=== PATIENT | male | born 1970 | race Caucasian/White ===

== ENCOUNTER 2018-07-11 15:31 | Emergency (ER) | payer MEDICAID ==
[~2018-07-11] VITALS: Wt 75.0 kg
[2018-07-11] MEDS ORDERED: KETOROLAC 60 MG INJ IM STA (16:16)
[2018-07-11] MEDS ORDERED: HYDR-4011 PO (19:06)
[2018-07-11] MEDS ORDERED: IBUP-1542 PO (19:06)
[2018-07-11 19:19] VITALS: BP 110/70; PULSE 88; RESP 16
--- NOTE | 2018-07-11 22:15 | ERD ---
ER Documentation Chief Complaint Chief Complaint LEFT LOWER LEG PAIN S/P FALL, NO KO HPI 48-year-old male patient with no significant past medical history presents to ED complaining of left lower leg pain status post fall from a ladder about 12 feet tall. 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 States that he has some numbness and tingling on his buttocks. Reports that sides of his neck also hurt. Denies any head or neck injuries. Denies any chest, abdominal, back injuries. Patient reports that it hurts to ambulate on his left ankle and leg. Describes the pain as pulsating and rates it an 8 out of 10. ROS All systems reviewed and are negative except as per history of present illness. Medications Home Meds Active Scripts Hydrocodone/Acetaminophen ([place] 5-325 Tablet) 1 Each Tablet, 1 TAB PO QHS PRN for PAIN, #7 TAB Prov:ADRIENNE VALLES PA-C 07/11/18 Ibuprofen* (Motrin*) 600 Mg Tab, 600 MG PO Q6, #30 TAB Prov:ADRIENNE VALLES PA-C 07/11/18 Allergies Allergies: Coded Allergies: No Known Allergy (Unverified , 07/11/18) PMhx/Soc Medical and Surgical Hx: pt denies Surgical Hx History of Surgery: No Anesthesia Reaction: No Hx Neurological Disorder: No Hx Respiratory Disorders: No Hx Cardiac Disorders: No Hx Psychiatric Problems: No Hx Miscellaneous Medical Probl: Yes (DMII) Hx Alcohol Use: No Hx Substance Use: No Hx Tobacco Use: No Smoking Status: Never smoker FmHx Family History: No diabetes, No coronary disease Physical Exam Vitals Vital Signs Date Temp Pulse Resp B/P (MAP) Pulse Ox O2 O2 Flow FiO2 Time Delivery Rate 07/11/18 98.0 88 16 110/70 99 Room Air 19:19 (83) 07/11/18 97.6 92 17 107/84 98 15:39 (92) Physical Exam Const: [id number], well-nourished. In no acute distress. Head: Atraumatic, normocephalic Eyes: Normal Conjunctiva without injection ENT: Normal external ear, nose and mouth. Neck: Full range of motion. No meningismus. Resp: Clear to auscultation bilaterally. No wheezing, rhonchi, rales, or crackles. No accessory muscle use. No retractions. Cardio: Regular rate and rhythm, no murmurs Skin: No petechiae or rashes Back: No midline tenderness. No CVA tenderness. Ext: No cyanosis, or edema. Cap refill less than 2 seconds. Distal pulses intact bilaterally. Tenderness to palpation of the anterior coates as well as dorsal asp ect of patient's left foot. Patient still had dorsiflexion, plantar flexion of his bilateral feet. Neur: Awake and alert. Normal gait and coordination. Muscle strength 5/5. Sensation intact bilaterally. Psych: Normal Mood and Affect Results 24 hrs Current Medications Medications Dose Sig/Coco Start Time Status Last (Trade) Ordered Route PRN Stop Time Admin Dose Reason Admin Ketorolac 60 mg ONCE STAT 07/11/18 DC 07/11/18 Tromethamine IM 16:16 16:30 (Toradol) 07/11/18 16:20 Procedures/MDM 48-year-old male patient with no significant past medical history presents to ED complaining of left lower leg pain status post fall from a 12 foot ladder, landed on his feet. Patient is afebrile and nontoxic-appearing. A lumbar x- ray, tib-fib x-ray, ankle, neck, foot x-ray was ordered to further evaluate monica ent. Patient was given Toradol here in the ED with improvement of his pain. IMPRESSION: 1. Unremarkable cervical spine x-rays series. IMPRESSION: 1. Comminuted mildly displaced intra-articular fracture of the distal lateral tibia. 2. No fibular or talus fracture identified. IMPRESSION: 1. Comminuted intra-articular mildly displaced fracture of the lateral aspect of the distal tibia. 2. No hind foot, midfoot, or forefoot fracture identified. IMPRESSION: 1. No acute fracture identified. 2. Mild hypolordosis. 3. L5-S1 spondylosis/enthesopathy. IMPRESSION: 1. No evidence for fracture of the proximal and mid tibia and fibula. 2. No knee region fracture is identified. Patient is placed in a posterior ankle splint for comminuted intra-articular mildly displaced fracture of lateral aspect of distal tibia. Crutches given to patient to help with ambulation. Splint Assessment: Neurovascularly intact pre and post splint placement with good fit. Patient's extremity symptoms have stabilized while they have been evaluated in the department and are appropriate for outpatient follow up. No evidence of fractures, dislocations, compartment syndrome, neurologic injury, vascular injury, open joint, open fracture, tendon laceration, septic arthritis, os teomyelitis, DVT, foreign body, or other emergent conditions. Patient is ambulating here in the ED without difficulty. Denies saddle anesthesia, numbness or tingling, urine or bowel incontinence, weakness. Low suspicion for cauda equina syndrome, cord compression, pression fracture, nephrolithiasis, aortic aneurysm, aortic dissection, epidural abscess, spinal hematoma, malignancy, pyelonephritis, or other emergent conditions. Diagnosis: Injury of left leg Discharge medications: [place], Ibuprofen Follow up with primary care physician in 1-2 days. Instructed patient to return to the ED sooner for any worsening symptoms. Patient's questions were answered. Patient is hemodynamically stable. Patient understood and agreed with discharge plan. Patient discharged stable. Disclaimer: Inadvertent spelling and grammatical errors are likely due to EHR/dictation software use and do not reflect on the overall quality of patient care. Also, please note that the electronic time recorded on this note does not necessarily reflect the actual time of the patient encounter. Departure Diagnosis: Primary Impression: Injury of left leg Encounter type: initial encounter Qualified Codes: S89.92XA - Unspecified injury of left lower leg, initial encounter Condition: Stable Patient Instructions: Fracture, Lower Extremity Referrals: [facility] YOU HAVE RECEIVED A MEDICAL SCREENING EXAM AND THE RESULTS INDICATE THAT YOU DO NOT HAVE A CONDITION THAT REQUIRES URGENT TREATMENT IN THE EMERGENCY DEPARTMENT. FURTHER EVALUATION AND TREATMENT OF YOUR CONDITION CAN WAIT UNTIL YOU ARE SEEN IN YOUR DOCTORS OFFICE WITHIN THE NEXT 1-2 DAYS. IT IS YOUR RESPONSIBILITY TO MAKE AN APPOINTMENT FOR FOLOW-UP CARE. IF YOU HAVE A PRIMARY DOCTOR --you should call your primary doctor and schedule an appointment IF YOU DO NOT HAVE A PRIMARY DOCTOR YOU CAN CALL OUR PHYSICIAN REFERRAL HOTLINE AT IF YOU CAN NOT AFFORD TO SEE A PHYSICIAN YOU CAN CHOSE FROM THE FOLLOWING [facility] CLINICS [facility] [address] [facility] [address] [facility]. [facility] [address] [facility] [facility] [address] [facility]. [facility] [address] [facility]. [facility]. [address] [facility]. [facility] YOU HAVE RECEIVED A MEDICAL SCREENING EXAM AND THE RESULTS INDICATE THAT YOU DO NOT HAVE A CONDITION THAT REQUIRES URGENT TREATMENT IN THE EMERGENCY DEPARTMENT. FURTHER EVALUATION AND TREATMENT OF YOUR CONDITION CAN WAIT UNTIL YOU ARE SEEN IN YOUR DOCTORS OFFICE WITHIN THE NEXT 1-2 DAYS. IT IS YOUR RESPONSIBILITY TO MAKE AN APPOINTMENT FOR FOLOW-UP CARE. IF YOU HAVE A PRIMARY DOCTOR --you should call your primary doctor and schedule and appointment IF YOU DO NOT HAVE A PRIMARY DOCTOR YOU CAN CALL OUR PHYSICIAN REFERRAL HOTLINE AT . IF YOU CAN NOT AFFORD TO SEE A PHYSICIAN YOU CAN CHOSE FROM THE FOLLOWING [facility] INSTITUTIONS: [facility] [address] [place] [address] [facility] [address] [place] [address] [facility] [address] [place] [address] [facility] Urgent Care 7 a.m.- 11 p.m. Every Day of the Week NO APPOINTMENT OR AUTHORIZATION NEEDED SO [facility] Hours: Mon-Fri 9:00 AM - 5:00 PM Additional Instructions: Call your primary care doctor TOMORROW for an appointment during the next 2-3 days for a referral to see an orthopedic physician.See the doctor sooner or return here if your condition worsens before your appointment time. ADRIENNE VALLES PA-C Jul 11, 2018 22:15
== END 2018-07-11 19:19 | disposition home or self-care (01) ==
LOC: FTE 15:31
DX: S82.302A Unspecified fracture of lower end of left tibia, initial encounter for closed fracture (principal); E11.9 Type 2 diabetes mellitus without complications; W11.XXXA Fall on and from ladder, initial encounter; Y92.9 Unspecified place or not applicable
CPT/HCPCS: 29515; 72040; 72100; 73590; 73610; 73630; 96372; J1885; Z7502

== ENCOUNTER 2018-11-10 19:09 | Emergency (ER) | payer SELFPAY ==
[~2018-11-10] VITALS: Ht 170.2 cm; Wt 69.9 kg
[~2018-11-10 19:09] MED LIST: HYDR-4011 PO; IBUP-1542 PO
[2018-11-10 19:12] VITALS: Ht 170.2 cm; Wt 69.9 kg
[2018-11-10] MEDS ORDERED: morphine 2 MG INJ IV STA (20:24)
[2018-11-10] MEDS ORDERED: SOD CHLORIDE 0.9% 1,000 ML IV ONE (20:30)
[2018-11-10] MEDS ORDERED: FAMOTIDINE 20 MG INJ IV ONE (20:30)
--- NOTE | 2018-11-10 20:35 | ERD ---
ER Documentation Chief Complaint Chief Complaint AP, FEVER, DYSURIA, URINARY HPI Patient is a 48 years old male with past medical history of diabetes currently on insulin therapy presenting to the ED for severe abdominal pain, fever, dysuria, urinary urgency, low urinary output, difficulty urinating since yesterday. Patient reports symptoms came all of a sudden denies taking any OTC medication. Patient reports his bladder is full admits to abdominal distention. Patient admits that he has a very small amount of drips whenever he tries to urinate with pain. Patient denies saddle anesthesia, nausea, emesis, diarrhea, constipation, hematochezia, hematuria, melena. ROS All systems reviewed and are negative except as per history of present illness. Medications Home Meds Active Scripts Phenazopyridine Hcl* (Pyridium*) 200 Mg Tab, 200 MG PO TID PRN for URINARY PAIN, #6 TAB Prov:MICHELLE PETTIT PA-C 11/11/18 Ciprofloxacin Hcl* (Ciprofloxacin Hcl*) 250 Mg Tablet, 250 MG PO BID for 5 Days, #10 TAB Prov:MICHELLE PETTIT PA-C 11/11/18 Tamsulosin Hcl* (Flomax*) 0.4 Mg Cap.er.24h, 0.4 MG PO BID, #30 CAP Prov:MICHELLE PETTIT PA-C 11/11/18 Hydrocodone/Acetaminophen ([place] 5-325 Tablet) 1 Each Tablet, 1 TAB PO QHS PRN for PAIN, #7 TAB Prov:ADRIENNE VALLES PA-C 07/11/18 Ibuprofen* (Motrin*) 600 Mg Tab, 600 MG PO Q6, #30 TAB Prov:ADRIENNE VALLES PA-C 07/11/18 Allergies Allergies: Coded Allergies: No Known Allergy (Unverified , 07/11/18) PMhx/Soc Medical and Surgical Hx: pt denies Surgical Hx History of Surgery: No Anesthesia Reaction: No Hx Neurological Disorder: No Hx Respiratory Disorders: No Hx Cardiac Disorders: No Hx Psychiatric Problems: No Hx Miscellaneous Medical Probl: Yes (DMII) Hx Alcohol Use: No Hx Substance Use: No Hx Tobacco Use: No Smoking Status: Never smoker Physical Exam Vitals Vital Signs Date Temp Pulse Resp B/P (MAP) Pulse Ox O2 O2 Flow FiO2 Time Delivery Rate 11/11/18 98.4 103 16 113/56 97 Room Air 01:09 (75) 11/10/18 101.2 105 20 141/73 97 19:12 (95) Physical Exam Const: Patient in some mild distress covering his with his left hand while lying on exam bed. Head: Atraumatic Eyes: Normal Conjunctiva Resp: Clear to auscultation bilaterally Cardio: Regular rate and rhythm, no murmurs Abd: Soft, distended, mild guarding, diffuse abdominal tenderness. Hyperactive bowel sounds. Negative Barnes sign, Rovsing sign, rebound tenderness, Ran sign, Domingo Marshall sign. Skin: No petechiae or rashes Back: No midline or flank tenderness. Left-sided CVAT. Ext: No cyanosis, or edema Neur: Awake and alert Psych: Normal Mood and Affect Result Diagram: 11/10/18203311/10/182033 Results 24 hrs Laboratory Tests Test 11/10/18 20:34 11/10/18 21:39 11/10/18 23:17 White Blood Count 18.6 10^3/ul Red Blood Count 4.42 10^6/ul Hemoglobin 12.9 g/dl Hematocrit 37.8 % Mean Corpuscular Volume 85.5 fl Mean Corpuscular Hemoglobin 29.2 pg Mean Corpuscular 34.1 g/dl Hemoglobin Concent Red Cell Distribution Width 12.7 % Platelet Count 433 10^3/UL Mean Platelet Volume 9.5 fl Immature Granulocytes % 1.200 % Neutrophils % 81.6 % Lymphocytes % 10.1 % Monocytes % 6.7 % Eosinophils % 0.1 % Basophils % 0.3 % Nucleated Red Blood Cells % 0.0 /100WBC Immature Granulocytes # 0.230 10^3/ul Neutrophils # 15.2 10^3/ul Lymphocytes # 1.9 10^3/ul Monocytes # 1.3 10^3/ul Eosinophils # 0.0 10^3/ul Basophils # 0.1 10^3/ul Nucleated Red Blood Cells # 0.0 10^3/ul Urine Color YELLOW Urine Clarity CLOUDY Urine pH 7.0 Urine Specific [place] 1.032 Urine Ketones 1+ mg/dL Urine Nitrite NEGATIVE mg/dL Urine Bilirubin NEGATIVE mg/dL Urine Urobilinogen 1+ mg/dL Urine Leukocyte Esterase 3+ Cecily/ul Urine Microscopic RBC 67 /HPF Urine Microscopic WBC > 182 /HPF Urine Bacteria FEW /HPF Urine Hemoglobin 2+ mg/dL Urine Glucose 3+ mg/dL Urine Total Protein 1+ mg/dl Sodium Level 134 mmol/L Potassium Level 4.1 mmol/L Chloride Level 96 mmol/L Carbon Dioxide Level 29 mmol/L Anion Gap 9 Blood Urea Nitrogen 14 mg/dl Creatinine 0.74 mg/dl Est Glomerular Filtrat > 60 mL/min Rate mL/min Glucose Level 395 mg/dl Calcium Level 9.0 mg/dl Total Bilirubin 0.6 mg/dl Direct Bilirubin 0.00 mg/dl Indirect Bilirubin 0.6 mg/dl Aspartate Amino 30 IU/L Transf (AST/SGOT) Alanine 60 IU/L Aminotransferase (ALT/SGPT) Alkaline Phosphatase 188 IU/L Total Protein 6.8 g/dl Albumin 3.5 g/dl Globulin 3.30 g/dl Albumin/Globulin Ratio 1.06 Lipase 47 U/L Prothrombin Time 13.9 Sec Prothrombin Time Ratio 1.1 INR International 1.06 Normalized Ratio Activated Partial Thromboplast 23.5 Sec Time Troponin I < 0.012 ng/ml Lactic Acid Level 1.5 mmol/L Current Medications Medications Dose Sig/Coco Start Time Status Last (Trade) Ordered Route PRN Stop Time Admin Dose Reason Admin Sodium 1,000 ml @ Q1H ONCE 11/10/18 DC 11/10/18 Chloride 1,000 mls/hr IV 20:30 20:49 11/10/18 21:29 Morphine 2 mg ONCE STAT 11/10/18 DC 11/10/18 Sulfate IV 20:24 20:51 (morphine) 11/10/18 20:31 Famotidine 20 mg ONCE ONCE 11/10/18 DC 11/10/18 (Pepcid Iv) IV 20:30 20:51 11/10/18 20:31 Ondansetron 4 mg ONCE STAT 11/10/18 DC 11/10/18 HCl (Zofran IV 20:53 21:03 Inj) 11/10/18 20:54 Ceftriaxone 50 ml @ ONCE ONCE 11/10/18 DC 11/10/18 Sodium 100 mls/hr IVPB 22:00 21:41 11/10/18 22:29 Procedures/MDM Patient was seen and evaluated for abdominal pain, dysuria, and urinary retention. CBC, CMP, Lipase, Lactic Acid, Urinalysis revealed leukocytosis (18.6), leukocyte esterase, urinary WBC which is most significant for UTI.. Abdominal/pelvic CT without contrast revealed: 1. The proximal gastric wall appears thickened but incompletely evaluated. This may be related to gastritis. Underlying gastric malignancy cannot be excluded. Direct inspection/endoscopy is recommended as clinically warranted. 2. Prostatomegaly measuring 6 cm. Correlate with PSA/digital rectal examination. The bladder wall also appears thickened. This may be related to chronic ob struction versus underlying infectious/inflammatory changes. Correlate with urinalysis as clinically warranted. 3. The kidneys are mildly prominent measuring up to 12 cm. CXR revealed No evidence for acute cardiopulmonary disease. Patient was given Zofran 4 mg IV, Pepcid 20 mg IV, morphine 20 mg IV, Rocephin 1 g IV in ED. Upon consultation with Dr. Fox, it was recommended to start Sepsis workup and straight cath. Patient reports significant improvement of symptoms post 200mL urine drainage. Patient is stable and ready for discharge. Follow-up with PCP for prostamegaly evaluation, possible gastric malignancy, and possible hydronephrosis. Patient was advised to follow-up with GI and urologist/energy broker. Patient will be discharged with Cipro 250 X 5 days, Pyridium, and Flomax. Sepsis work-up is negative however patient will be contacted for blood culture results. Departure Diagnosis: Primary Impression: UTI (urinary tract infection) Urinary tract infection type: site unspecified Hematuria presence: without hematuria Qualified Codes: N39.0 - Urinary tract infection, site not specified Additional Impression: BPH loc w urin obs/LUTS Condition: Stable Patient Instructions: Bph (Enlarged Prostate), Understanding Urinary Tract Infections (UTIs) Referrals: DOUGLAS CHRISTIAN MD, KENNETH L MD [facility] Additional Instructions: Patient advised to return to the ED immediately for new or worsening symptoms. Patient advised to follow up with primary care provider in the next 24-48 hours. Patient verbalized understanding and agrees with treatment plan and course of action. If patient has no primary care they may follow up with [facility] + [facility] [address] [place] [address] or [facility] [address] [place] [address] [address] [facility] [address] [place] [address] MICHELLE PETTIT PA-C Nov 10, 2018 20:35
[2018-11-10] MEDS ORDERED: ONDANSETRON 4 MG INJ IV STA (20:53)
[2018-11-10] MEDS ORDERED: CEFTRIAXONE 1 GM/50 ML (PMX) 50 ML IVPB ONE (22:00)
[2018-11-11] MEDS ORDERED: TAMS-14 PO (00:16)
[2018-11-11] MEDS ORDERED: PHEN-538 PO (00:16)
[2018-11-11] MEDS ORDERED: CIPR-193 PO (00:16)
[2018-11-11 01:09] VITALS: BP 113/56; PULSE 103; RESP 16
== END 2018-11-11 01:11 | disposition home or self-care (01) ==
LOC: FTE 19:09
DX: N39.0 Urinary tract infection, site not specified (principal); N40.1 Benign prostatic hyperplasia with lower urinary tract symptoms; E11.9 Type 2 diabetes mellitus without complications
CPT/HCPCS: 36415; 71045; 74176; 80053; 81001; 83605; 83690; 84484; 85025; 85610; 85730; 87040; 87086; 96361; 96365; 96366; 96375; 99285; J2270; J2405; J7030; P9612